=== PATIENT | female | born 1945 | race Caucasian/White ===

== ENCOUNTER 2020-09-01 15:38 | Inpatient (IN) | payer OTHER ==
[~2020-09-01] VITALS: Ht 162.6 cm; Wt 77.1 kg
[2020-09-01 15:40] VITALS: BP 104/70
[2020-09-01 16:11] LABS: BASOPHILS % (AUTO) 0.2 % (0.0-2.0); EOSINOPHILS # (AUTO) 0.2 K/uL (0-0.4); EOSINOPHILS % (AUTO) 1.8 % (0.0-4.0); HEMATOCRIT 36.1 % (36-48); HEMOGLOBIN 11.9 g/dL (12.0-16.0); LYMPHOCYTES # (AUTO) 2.7 K/uL (2.5-16.5); LYMPHOCYTES % (AUTO) 31.3 % (20.5-51.1); MEAN CORPUSCULAR HEMOGLOBIN 29 pg (27-31); MEAN CORPUSCULAR HGB CONC 33 g/dL (33-37); MEAN CORPUSCULAR VOLUME 89.3 fL (80-94); MONOCYTES # (AUTO) 0.8 K/uL (0.8-1.0); MONOCYTES % (AUTO) 9.4 % (1.7-9.3); NEUTROPHILS % (AUTO) 57.3 % (42.2-75.2); PLATELET COUNT (AUTO) 262 K/uL (140-450); RED BLOOD CELL COUNT(AUTO) 4.05 MIL/uL (4.20-5.40); RED CELL DISTRIBUTION WIDTH 14.9 % (11.6-13.7); WHITE BLOOD COUNT (AUTO) 8.7 K/uL (4.8-10.8)
[2020-09-01 16:29] LABS: ALBUMIN 2.7 g/dL (3.4-5.0); ANION GAP 9.9 (8-16); ASPARTATE AMINOTRANSFERASE 14 U/L (15-37); CARBON DIOXIDE 27.1 mmol/L (21-32); CHLORIDE 104 mmol/L (98-107); CREATININE 0.6 mg/dL (0.6-1.3); GLUCOSE 129 mg/dL (74-106); SODIUM SERUM 137 mmol/L (136-145); TOTAL BILIRUBIN 0.4 mg/dL (0.0-1.0); UREA NITROGEN, BLOOD 26 mg/dL (7-18)
[2020-09-01] MEDS ORDERED: ENAL5TAB48 PO (16:54)
[2020-09-01] MEDS ORDERED: MORPHINE SULFATE 4 MG/ML SYR IVP ONE (17:20)
[2020-09-02 07:27] LABS: BASOPHILS % (AUTO) 0.1 % (0.0-2.0); EOSINOPHILS # (AUTO) 0.2 K/uL (0-0.4); HEMATOCRIT 35.7 % (36-48); HEMOGLOBIN 11.9 g/dL (12.0-16.0); LYMPHOCYTES # (AUTO) 2.6 K/uL (2.5-16.5); LYMPHOCYTES % (AUTO) 28.4 % (20.5-51.1); MEAN CORPUSCULAR HEMOGLOBIN 30 pg (27-31); MEAN CORPUSCULAR HGB CONC 33 g/dL (33-37); MONOCYTES # (AUTO) 0.9 K/uL (0.8-1.0); MONOCYTES % (AUTO) 9.2 % (1.7-9.3); NEUTROPHILS # (AUTO) 5.6 K/uL (1.8-7.7); NEUTROPHILS % (AUTO) 60.3 % (42.2-75.2); PLATELET COUNT (AUTO) 251 K/uL (140-450); RED BLOOD CELL COUNT(AUTO) 4.01 MIL/uL (4.20-5.40); RED CELL DISTRIBUTION WIDTH 15.5 % (11.6-13.7); WHITE BLOOD COUNT (AUTO) 9.3 K/uL (4.8-10.8)
[2020-09-02 07:36] LABS: ALBUMIN 2.6 g/dL (3.4-5.0); AMYLASE 33 U/L (25-115); ANION GAP 9.4 (8-16); ASPARTATE AMINOTRANSFERASE 15 U/L (15-37); CARBON DIOXIDE 29.1 mmol/L (21-32); CHLORIDE 105 mmol/L (98-107); CHOL/HDL RATIO 3.1 (1-4.5); CREATININE 0.5 mg/dL (0.6-1.3); GLUCOSE 98 mg/dL (74-106); HDL CHOLESTEROL 45 mg/dL (40-60); LDL (CALC) 80 mg/dL (60-100); LIPASE 45 U/L (73-393); POTASSIUM 4.5 mmol/L (3.5-5.1); SODIUM SERUM 139 mmol/L (136-145); THYROID STIMULATING HORMONE 0.52 uIU/mL (0.34-3.74); TOTAL BILIRUBIN 0.6 mg/dL (0.0-1.0); TRIGLYCERIDES 65 mg/dL (30-150); UREA NITROGEN, BLOOD 26 mg/dL (7-18)
[2020-09-02 08:15] VITALS: BP 136/75
[2020-09-02] MEDS ORDERED: ZOLPIDEM 5 MG TAB PO PRN (09:25)
[2020-09-02] MEDS ORDERED: HYDROcodone/APAP 5/325 MG 1 TAB TAB PO PRN (09:25)
[2020-09-02] MEDS ORDERED: LORazepam 2 MG/ML VIAL IM/IVP PRN (09:25)
[2020-09-02] MEDS ORDERED: DOCUSATE SODIUM 100 MG GELCAP PO PRN (09:25)
[2020-09-02] MEDS: NACL 0.9% 1,000 ML IV SCH ×2 (09:25→23:43)
[2020-09-02] MEDS ORDERED: ONDANSETRON 4 MG/2 ML VIAL IVP PRN (09:25)
[2020-09-02] MEDS ORDERED: NITROGLYCERIN 0.4 MG TAB SL PRN (09:25)
[2020-09-02] MEDS ORDERED: ACETAMINOPHEN 325 MG TAB PO PRN (09:25)
[2020-09-02] MEDS ORDERED: MORPHINE SULFATE 2 MG/ML SYR IVP PRN (09:25)
[2020-09-02 10:04] LABS: PROTHROMBIN TIME 10.7 secs (10.8-13.4)
[2020-09-02 10:15] LABS: THYROID STIMULATING HORMONE 0.44 uIU/mL (0.34-3.74)
[2020-09-02 10:26] LABS: APPEARANCE,URINE CLOUDY (CLEAR); BILIRUBIN,URINE NEGATIVE (NEGATIVE); BLOOD, URINE 2+ (NEGATIVE); COLOR,URINE YELLOW (YELLOW); LEUKOCYTE ESTERASE ,URINE 2+ (NEGATIVE); NITRITE, URINE NEGATIVE (NEGATIVE); UGLUCOSE NEGATIVE (NEGATIVE)
[2020-09-02 11:04] LABS: CALCIUM OXALATE CRYSTALS,UR 0-10 /HPF (None Seen); YEAST,URINE Moderate /HPF (None Seen)
[2020-09-02 11:05] LABS: WBC,URINE 80-100 /HPF (0-5)
[2020-09-02] MEDS: ASPIRIN 81 MG TAB.CHEW PO SCH (11:10)
[2020-09-02 12:00] VITALS: BP 129/72
[2020-09-02] MEDS: LACTOBACILLUS RHAMNOSUS GG 1 EACH CAP PO SCH (13:10)
[2020-09-02] MEDS ORDERED: WOUND CARE PREPARATION 178 ML SPR TP PRN ×2 (14:35→15:15)
[2020-09-02 16:00] VITALS: BP 114/65
[2020-09-02 20:00] VITALS: BP 117/61
[2020-09-02] MEDS ORDERED: SIMVASTATIN 20 MG TAB PO SCH (21:00)
[2020-09-02] MEDS: ATORVASTATIN 20 MG TAB PO SCH (21:41)
[2020-09-03] VITALS: BP 145/73
[2020-09-03] MEDS: HYDRAGUARD CREAM TP SCH ×2 (00:21→13:00)
[2020-09-03] MEDS ORDERED: HYDRAGUARD CREAM TP SCH (01:00)
[2020-09-03 04:00] VITALS: BP 128/70
[2020-09-03] MEDS: NACL 0.9% 1,000 ML IV SCH ×2 (04:00→14:01)
[2020-09-03 07:12] LABS: MAGNESIUM 1.7 mg/dL (1.8-2.4); PHOSPHORUS 3.2 mg/dL (2.5-4.9)
[2020-09-03 07:15] LABS: BASOPHILS % (AUTO) 0.1 % (0.0-2.0); EOSINOPHILS # (AUTO) 0.2 K/uL (0-0.4); EOSINOPHILS % (AUTO) 2.2 % (0.0-4.0); HEMATOCRIT 35.6 % (36-48); HEMOGLOBIN 11.9 g/dL (12.0-16.0); LYMPHOCYTES # (AUTO) 2.4 K/uL (2.5-16.5); LYMPHOCYTES % (AUTO) 28.2 % (20.5-51.1); MEAN CORPUSCULAR HEMOGLOBIN 30 pg (27-31); MEAN CORPUSCULAR HGB CONC 33 g/dL (33-37); MONOCYTES # (AUTO) 0.8 K/uL (0.8-1.0); NEUTROPHILS # (AUTO) 5.1 K/uL (1.8-7.7); NEUTROPHILS % (AUTO) 60.5 % (42.2-75.2); PLATELET COUNT (AUTO) 249 K/uL (140-450); RED CELL DISTRIBUTION WIDTH 15.1 % (11.6-13.7); WHITE BLOOD COUNT (AUTO) 8.4 K/uL (4.8-10.8)
[2020-09-03 07:29] LABS: ANION GAP 8.4 (8-16); CARBON DIOXIDE 27.1 mmol/L (21-32); CHLORIDE 105 mmol/L (98-107); CREATININE 0.5 mg/dL (0.6-1.3); GLUCOSE 94 mg/dL (74-106); POTASSIUM 3.5 mmol/L (3.5-5.1); SODIUM SERUM 137 mmol/L (136-145); UREA NITROGEN, BLOOD 23 mg/dL (7-18)
[2020-09-03 08:00] VITALS: BP 151/74
[2020-09-03] MEDS: ASPIRIN 81 MG TAB.CHEW PO SCH (08:56)
[2020-09-03] MEDS: LACTOBACILLUS RHAMNOSUS GG 1 EACH CAP PO SCH (08:56)
[2020-09-03] MEDS: lisinopriL 10 MG TAB PO SCH (08:56)
[2020-09-03] MEDS ORDERED: MAGNESIUM OXIDE 400 MG TAB PO SCH (11:00)
[2020-09-03 12:00] VITALS: BP 116/75
[2020-09-03] MEDS ORDERED: MILD SOAP AND WATER TP SCH ×2 (13:00)
[2020-09-03] MEDS ORDERED: FLUCONAZOLE 100 MG TAB PO ONE (15:00)
[2020-09-03 16:00] VITALS: BP 133/71
[2020-09-03 20:00] VITALS: BP 135/70
[2020-09-03 20:41] LABS: HEMATOCRIT 35.3 % (36-48); HEMOGLOBIN 11.6 g/dL (12.0-16.0)
[2020-09-03] MEDS: ATORVASTATIN 20 MG TAB PO SCH (21:16)
[2020-09-04] MEDS: HYDRAGUARD CREAM TP SCH ×2 (01:00→13:52)
[2020-09-04 04:00] VITALS: BP 151/80
[2020-09-04] MEDS: NACL 0.9% 1,000 ML IV SCH (05:00)
[2020-09-04 08:00] VITALS: BP 151/87
[2020-09-04] MEDS ORDERED: MAG SULF 2000 MG/WATER PREMIX 50 ML IV ONE (08:30)
[2020-09-04] MEDS ORDERED: FLUC100T PO (08:58)
[2020-09-04] MEDS ORDERED: ASPI81CT95 PO (08:58)
[2020-09-04] MEDS: lisinopriL 10 MG TAB PO SCH (09:24)
[2020-09-04] MEDS: LACTOBACILLUS RHAMNOSUS GG 1 EACH CAP PO SCH (09:25)
[2020-09-04] MEDS: ASPIRIN 81 MG TAB.CHEW PO SCH (09:25)
[2020-09-04 16:00] VITALS: BP 145/74
== END 2020-09-04 18:41 | DRG 205 ==
LOC: MED 15:38 → MTU 09-02 01:03
PROVIDERS: ADMIT Internal Medicine; ATTEND Internal Medicine
DX: M94.0 Chondrocostal junction syndrome [Tietze] (principal); G93.41 Metabolic encephalopathy; E43 Unspecified severe protein-calorie malnutrition; N39.0 Urinary tract infection, site not specified; E66.9 Obesity, unspecified; E11.9 Type 2 diabetes mellitus without complications; I10 Essential (primary) hypertension; E78.5 Hyperlipidemia, unspecified; D64.9 Anemia, unspecified; E83.42 Hypomagnesemia; Z68.29 Body mass index [BMI] 29.0-29.9, adult; Z20.822 Contact with and (suspected) exposure to COVID-19
CPT/HCPCS: 36415; 70450; 71045; 80048; 80053; 81001; 82150; 83036; 83690; 83735; 83880; 84100; 84436; 84443; 84484; 85018; 85025; 85610; 85730; 87081; 87086; 93005; 99285; J0696; J2270; J3475; J7060

== ENCOUNTER 2020-09-06 00:10 | Observation (INO) | payer OTHER ==
[~2020-09-06] VITALS: Ht 160 cm; Wt 79.4 kg
[~2020-09-06 00:10] MED LIST: ASPI81CT95 PO; ENAL5TAB48 PO; FLUC100T PO
[2020-09-06 00:14] VITALS: BP 128/82
--- NOTE | 2020-09-06 00:14 | NUR ---
ANDRY GRUBBS TAKEN TO BED #12
--- NOTE | 2020-09-06 00:30 | NUR ---
[facility] NOONAN 75 [facility]EM[facility] PT. STATES THAT SHE HAS BEEN FEELING LEFT SIDED PRESSURE/WEAKNESS SINCE YESTERDAY. SHE DENIES PAIN AT THIS TIME. SKIN IS PINK/WARM/DRY; AAOX4 WITH EVEN AND STEADY GAIT; HR EVEN AND REGULAR; PT DENIES ANY FEVER, CP, SOB, OR COUGH AT THIS TIME; VSS; PATIENT POSITIONED FOR COMFORT; HOB ELEVATED; BEDRAILS UP X2; BED DOWN. ER MD MADE AWARE OF PT STATUS.
--- NOTE | 2020-09-06 00:43 | NUR ---
DR. NAGEL AT BEDSIDE.
[2020-09-06 01:08] LABS: BASOPHILS % (AUTO) 0.3 % (0.0-2.0); EOSINOPHILS # (AUTO) 0.2 K/uL (0-0.4); EOSINOPHILS % (AUTO) 2.9 % (0.0-4.0); HEMATOCRIT 36.5 % (36-48); HEMOGLOBIN 12.1 g/dL (12.0-16.0); LYMPHOCYTES # (AUTO) 2.7 K/uL (2.5-16.5); LYMPHOCYTES % (AUTO) 39.5 % (20.5-51.1); MEAN CORPUSCULAR HEMOGLOBIN 30 pg (27-31); MEAN CORPUSCULAR HGB CONC 33 g/dL (33-37); MEAN CORPUSCULAR VOLUME 88.9 fL (80-94); MONOCYTES # (AUTO) 0.7 K/uL (0.8-1.0); MONOCYTES % (AUTO) 9.7 % (1.7-9.3); NEUTROPHILS # (AUTO) 3.3 K/uL (1.8-7.7); NEUTROPHILS % (AUTO) 47.6 % (42.2-75.2); PLATELET COUNT (AUTO) 263 K/uL (140-450); RED CELL DISTRIBUTION WIDTH 15.4 % (11.6-13.7); WHITE BLOOD COUNT (AUTO) 6.8 K/uL (4.8-10.8)
[2020-09-06 01:32] LABS: PROTHROMBIN TIME 10.8 secs (10.8-13.4)
[2020-09-06 01:46] LABS: ANION GAP 14.1 (8-16); CHLORIDE 105 mmol/L (98-107); GLUCOSE 102 mg/dL (74-106); POTASSIUM 4.1 mmol/L (3.5-5.1); SODIUM SERUM 141 mmol/L (136-145); UREA NITROGEN, BLOOD 16 mg/dL (7-18)
[2020-09-06 01:47] LABS: ALBUMIN 2.6 g/dL (3.4-5.0); ASPARTATE AMINOTRANSFERASE 15 U/L (15-37); CREATININE 0.5 mg/dL (0.6-1.3); TOTAL BILIRUBIN 0.4 mg/dL (0.0-1.0)
--- NOTE | 2020-09-06 01:47 | NUR ---
PT TRANSPORTED TO CT VIA [facility]
--- NOTE | 2020-09-06 02:10 | NUR ---
PT RETURNED FROM CT VIA [facility]
--- NOTE | 2020-09-06 02:41 | NUR ---
PT. RESTING COMFORTABLY WITH EYES CLOSED AND VOICES NO COMPLAINTS.
[2020-09-06] MEDS ORDERED: POTASSIUM CHLORIDE 10 MEQ TABER PO PRN (03:55)
[2020-09-06] MEDS ORDERED: ONDANSETRON 4 MG/2 ML VIAL IVP PRN (03:55)
[2020-09-06] MEDS ORDERED: ACETAMINOPHEN 325 MG TAB PO PRN (03:55)
[2020-09-06] MEDS ORDERED: MORPHINE SULFATE 4 MG/ML SYR IVP PRN (03:55)
[2020-09-06] MEDS ORDERED: MAGNESIUM OXIDE 400 MG TAB PO PRN (03:55)
[2020-09-06] MEDS ORDERED: KCL 20 MEQ/WATER INJ PREMIX 200 ML IV PRN (03:55)
[2020-09-06] MEDS ORDERED: MAG SULF 2000 MG/WATER PREMIX 50 ML IV PRN (03:55)
[2020-09-06] MEDS ORDERED: ASCO500T95 PO (04:37)
--- NOTE | 2020-09-06 04:45 | NUR ---
CALLED REPORT TO ALISIA SOLANO (TELEMETRY) FOR TRANSFER OF CARE.
--- NOTE | 2020-09-06 04:55 | NUR ---
PT. TRANSPORTED VIA GURNEY TO TELEMTRY UNIT, ACCOMPANIED BY RN (MYSELF) AND EMT, DARRELL.
[2020-09-06 05:15] VITALS: BP 109/76
--- NOTE | 2020-09-06 05:15 | NUR ---
PT ARRIVED TO UNIT VIA GURNEY. PT IS AWAKE AND ALERT, A&OX4. ON RA WITH BREATHING UNLABORED. NO RESPIRATORY DISTRESS NOTED. BOWEL SOUNDS ARE PRESENT IN ALL QUADRANTS. CALVO CATH IN PLACE DRAINING CLEAR, YELLOW URINE. PT HAS GENERALIZED WEAKNESS AND STATES SHE USES WALKER AT HOME. SKIN IS WARM, DRY, AND INTACT. PT IS STABLE.
--- NOTE | 2020-09-06 05:30 | NUR ---
CAGE MAKER MACHINE USED TO OBTAIN HISTORY. PT IS A&OX4. DID NOT REMEMBER THE ANSWER TO VERY FEW QUESTIONS. PT APPEARS TO BE ALERT. TEAROOM HOST/HOSTESS NUMBER [id number].
--- NOTE | 2020-09-06 06:39 | NUR ---
SKIN TEAR NOTED ON RIGHT BUTTOCK AND REDNESS TO THE BUTTOCK REGION. AREA WAS CLEANSED WITH NS AND PATTED DRY. PICTURE WAS TAKEN. CHARGE NURSE, MELONIE, AT BEDSIDE. PT DENIES PAIN AT SITE.
--- NOTE | 2020-09-06 07:02 | NUR ---
SENT A MESSAGE TO DR. MASON REGARDING PT'S CODE STATUS. INFORMED HIM THAT ORDER WAS PLACED FOR FULL CODE STATUS BUT POLST STATES PT IS DNR WITH COMFORT MEASURES. WILL WAIT FOR REPLY BACK.
--- NOTE | 2020-09-06 07:25 | NUR ---
ENDORSED PT TO DAY SHIFT NURSE FOR CONTINUITY OF CARE. PT IS STABLE AT THIS TIME. PLAN OF CARE DISCUSSED.
--- NOTE | 2020-09-06 07:36 | NUR ---
DR. MASON RESPONDED TO TEXT MESSAGE TO CHANGE CODE STATUS TO DNR. CODE STATUS CHANGED FROM FULL CODE TO DNR.
--- NOTE | 2020-09-06 07:37 | NUR ---
RECEIVED REPORT FROM INDUSTRIAL SALES ENGINEER NURSE. PATIENT LYING DOWN IN BED SLEEPING, AROUSABLE BY VOICE. ON ROOM AIR. IV SITE INTACT, PATENT, AND INFUSING IVF PER MD ORDERS. REVIEWED PLAN OF CARE WITH PATIENT. REINFORCEMENT NEEDED. SAFETY MEASURES IN PLACE, CALL LIGHT WITHIN REACH. WILL CONTINUE TO MONITOR.
[2020-09-06 08:00] VITALS: BP 115/69
--- NOTE | 2020-09-06 08:32 | NUR ---
SCHEDULED MEDICATIONS DUE GIVEN. WILL CONTINUE TO MONITOR.
--- NOTE | 2020-09-06 08:55 | NUR ---
PATIENT HAS BEEN SCREENED AND CATEGORIZED LOW NUTRITION RISK. PATIENT WILL BE SEEN WITHIN 7 DAYS OF ADMISSION. 09/12/20 FNS CONSULT RECEIVED FOR WOUNDS/PRESSURE INJURIES NOT APPROPRIATE. CHRISTIANA PHIPPS RD
[2020-09-06] MEDS ORDERED: ASPIRIN 81 MG TAB.CHEW PO SCH (09:00)
[2020-09-06] MEDS ORDERED: ENOXAPARIN 40 MG/0.4 ML SYR SUBQ SCH (09:00)
--- NOTE | 2020-09-06 10:53 | NUR ---
PATIENT LYING DOWN IN BED WATCHING TV. NO DISTRESS NOTED. CONDITION UNCHANGED. WILL CONTINUE TO MONITOR.
--- NOTE | 2020-09-06 10:58 | NUR ---
PAKO FISH PEDDLER: RECEIVED ORDER FOR MRI OF THE HEAD. FAXED TO CATHI AT [facility] [phone]. RECEIVED A PHONE CALL FROM CATHI HE ASKED THAT WE SEND THE ORDER TO [facility] AND [facility]. HE RECOMMENDED FOR THE PATIENT TO BE TRANSFERRED OUT INSTEAD OF RETURNING AFTER THE MRI. CATHI WILL FOLLOW UP WITH BOTH HOSPITALS AND CONTACT US BACK. Addendum: 09/06/20 at 1551 by Kelly Petersen CM Cathi is working on bed for pt at [facility] ([phone]); [facility] has called [facility] to confirm bed number, [facility] left a message. [facility] has placed [facility] ambulance on will call ([phone]); auth: [id number].
[2020-09-06 12:00] VITALS: BP 102/53
[2020-09-06 12:18] LABS: BILIRUBIN,URINE NEGATIVE (NEGATIVE); BLOOD, URINE 1+ (NEGATIVE); COLOR,URINE YELLOW (YELLOW); LEUKOCYTE ESTERASE ,URINE 1+ (NEGATIVE); NITRITE, URINE NEGATIVE (NEGATIVE); UGLUCOSE NEGATIVE (NEGATIVE)
--- NOTE | 2020-09-06 12:30 | NUR ---
MRI HEAD QUESTIONNAIRE FILLED OUT WITH PATIENT. PATIENT VERBALIZED COMPLETE UNDERSTANDING. WILL CONTINUE TO MONITOR.
[2020-09-06 12:35] LABS: APPEARANCE,URINE CLEAR (CLEAR); RBC,URINE 0-5 /HPF (0-5); WBC,URINE 0-5 /HPF (0-5)
--- NOTE | 2020-09-06 15:00 | NUR ---
ASSISTED PATIENT IN [facility]. WILL CONTINUE TO MONITOR.
[2020-09-06 16:00] VITALS: BP 112/66
--- NOTE | 2020-09-06 17:49 | NUR ---
DISCHARGE INSTRUCTIONS PROVIDED TO PATIENT IN PREFERRED LANGUAGE OF [place] WITH [employer] REP #[id number]. NOTIFIED PATIENT OF TRANSFER TO [facility] LATER TODAY FOR MRI HEAD AND CONTINUATION OF CARE PER INSURANCE REQUEST. ANSWERED ALL OF PATIENT'S QUESTIONS REGARDING TRANSFER. CALLED PATIENT'S DAUGHTER, CHEKO JEFFERY AND NOTIFIED HER OF PATIENT'S PLAN OF BEING TRANSFERRED TO [facility] TODAY. ANSWERED ALL OF HER QUESTIONS. DAUGHTER VERBALIZED COMPLETED UNDERSTANDING.
--- NOTE | 2020-09-06 19:39 | NUR ---
GAVE REPORT TO CONTAINER CRANE OPERATOR NURSE FOR CONTINUITY OF CARE. PATIENT IN STABLE CONDITION.
--- NOTE | 2020-09-06 19:40 | NUR ---
RECEIVED REPORT FROM SUJATA ATKINSON. PT AOX2 ON ROOM AIR. NO S/S RESPIRATORY DISTRESS. IV SITE RAC PATENT INTACT, S.L. HAS R BUTTOCK SKIN TEAR. SAFETY MEASURES IN PLACE. CALL LIGHT WITHIN REACH. WILL CONTINUE TO MONITOR Addendum: 09/07/20 at 0022 by Magdy Marvin RN CALVO CATH IN PLACE. DRAINING YELLOW URINE
--- NOTE | 2020-09-06 19:55 | NUR ---
PRN MORPHINE GIVEN FOR 10/10 GENERALIZED PAIN. EDUCATION PROVIDED. NO DISTRESS NOTED. SAFETY MEASURES IN PLACE. CALL LIGHT WITHIN REACH. WILL CONTINUE TO MONITOR
[2020-09-06 20:00] VITALS: BP 121/73
--- NOTE | 2020-09-06 20:41 | NUR ---
RECEIVED CALL FROM [facility], SPOKE WITH MACHO CRUMP. PT WILL BE GOING TO TELE STATION 3 ROOM 350A. RECEIVED PHONE NUMBER [phone] TO GIVE REPORT TO.
--- NOTE | 2020-09-06 21:00 | NUR ---
REPORT GIVEN TO ALISIA RABAGO FROM [facility].
--- NOTE | 2020-09-06 22:40 | NUR ---
RECEIVED CALL FROM DAUGHTER CHEKO. UPDATED ON PATIENT'S STATUS
[2020-09-07] VITALS: BP 153/90
--- NOTE | 2020-09-07 00:06 | NUR ---
PATIENT ASLEEP IN BED. EASILY AROUSABLE. RESPIRATIONS EVEN UNLABORED. NO DISTRESS NOTED. DENIES DISCOMFORT. DENIES PAIN. CALL LIGHT WITHIN REACH. WILL CONTINUE TO MONITOR
--- NOTE | 2020-09-07 00:50 | NUR ---
PATIENT LEFT WITH TRANSPORT TEAM, TRANSFER TO [facility]. PT IN STABLE CONDITION
[2020-09-07] MEDS ORDERED: Z-GUARD PASTE TP SCH (01:00)
== END 2020-09-07 00:50 | disposition short-term general hospital (02) ==
LOC: MED 00:10 → MTU 04:01
PROVIDERS: ADMIT Hospitalist; ATTEND Hospitalist
DX: R53.1 Weakness (principal); Z20.822 Contact with and (suspected) exposure to COVID-19; R20.0 Anesthesia of skin; I11.0 Hypertensive heart disease with heart failure; I50.30 Unspecified diastolic (congestive) heart failure; E66.01 Morbid (severe) obesity due to excess calories; F03.90 Unspecified dementia, unspecified severity, without behavioral disturbance, psychotic disturbance, mood disturbance, and anxiety; E11.9 Type 2 diabetes mellitus without complications; R51.9 Headache, unspecified; Z79.899 Other long term (current) drug therapy; Z68.31 Body mass index [BMI] 31.0-31.9, adult
CPT/HCPCS: 36415; 70450; 71045; 80053; 81001; 84484; 85025; 85610; 85730; 87081; 87086; 87426; 93880; 96372; 96374; 97163; 99285; G0378; J1650; J2270

== ENCOUNTER 2023-08-24 14:38 | Inpatient (IN) | payer OTHER ==
[~2023-08-24] VITALS: Ht 165.1 cm; Wt 108.9 kg
[~2023-08-24 14:38] MED LIST changes: +ACET-10509 PO; +ASCO500T95 PO; +CHOL5000 PO; +CRAN450T5 PO; +DEXT118S47 PO; +DOCU-299 PO; +ENAL-197 PO; +HYDR-5080 PO; +IBUP-2213 PO; +MEMA5TAB15 PO; +MULT-2246 PO; +NITR100C7 PO; +PHEN26CR2 RC
[2023-08-24 14:47] VITALS: BP_SYST 116; BP_SYST 154; BP_DIAS 61; BP_DIAS 86; PULSE 79; RESP 20; TEMP 97.7; O2SAT 96
[2023-08-24 15:36] LABS: BASOPHILS % (AUTO) 0.1 % (0.0-2.0); EOSINOPHILS # (AUTO) 0.1 K/uL (0-0.4); EOSINOPHILS % (AUTO) 1.8 % (0.0-4.0); HEMATOCRIT 38.7 % (36-48); HEMOGLOBIN 13.2 g/dL (12.0-16.0); LYMPHOCYTES # (AUTO) 1.6 K/uL (2.5-16.5); LYMPHOCYTES % (AUTO) 21.3 % (20.5-51.1); MEAN CORPUSCULAR HEMOGLOBIN 31 pg (27-31); MEAN CORPUSCULAR HGB CONC 34 g/dL (33-37); MEAN CORPUSCULAR VOLUME 89.8 fL (80-94); MONOCYTES # (AUTO) 0.6 K/uL (0.8-1.0); MONOCYTES % (AUTO) 8.4 % (1.7-9.3); NEUTROPHILS # (AUTO) 5.2 K/uL (1.8-7.7); NEUTROPHILS % (AUTO) 68.4 % (42.2-75.2); PLATELET COUNT (AUTO) 223 K/uL (140-450); RED BLOOD CELL COUNT(AUTO) 4.31 MIL/uL (4.20-5.40); RED CELL DISTRIBUTION WIDTH 14.3 % (11.6-13.7); WHITE BLOOD COUNT (AUTO) 7.6 K/uL (4.8-10.8)
[2023-08-24 15:57] LABS: ANION GAP 11.4 (8-16); CALCIUM 8.4 mg/dL (8.5-10.1); CARBON DIOXIDE 27.8 mmol/L (21-32); CHLORIDE 105 mmol/L (98-107); CREATININE 0.6 mg/dL (0.6-1.3); GLUCOSE 113 mg/dL (74-106); POTASSIUM 4.2 mmol/L (3.5-5.1); SODIUM SERUM 140 mmol/L (136-145); UREA NITROGEN, BLOOD 23 mg/dL (7-18)
[2023-08-24 16:03] LABS: ALANINE AMINOTRANSFERASE 16 U/L (12-78); ALBUMIN 2.9 g/dL (3.4-5.0); ALKALINE PHOSPHATASE 98 U/L (50-136); ASPARTATE AMINOTRANSFERASE 10 U/L (15-37); BILIRUBIN,DIRECT 0.1 mg/dL (0.0-0.3); TOTAL BILIRUBIN 0.4 mg/dL (0.0-1.0); TOTAL PROTEIN, SERUM 6.6 g/dL (6.4-8.2)
[2023-08-24] MEDS ORDERED: ACETAMINOPHEN 325 MG TAB PO ONE (16:30)
[2023-08-24] MEDS: ACETAMINOPHEN 325 MG TAB PO ONE (17:16)
[2023-08-24] MEDS: ASPIRIN 325 MG TAB PO ONE (17:18)
[2023-08-24] MEDS ORDERED: ACETAMINOPHEN 325 MG TAB PO PRN (17:30)
[2023-08-24] MEDS ORDERED: ONDANSETRON 4 MG/2 ML VIAL IVP PRN (17:30)
[2023-08-24] MEDS ORDERED: HYDROcodone/APAP 5/325 MG 1 TAB TAB PO PRN (17:30)
[2023-08-24] MEDS ORDERED: ATOR20TA40 PO (17:48)
[2023-08-24] MEDS ORDERED: HYDR-1098 PO (17:48)
[2023-08-24 20:50] VITALS: PULSE 68
[2023-08-24 22:00] VITALS: PULSE 63; RESP 18
[2023-08-24] MEDS: METOPROLOL 25 MG TAB PO SCH (22:27)
[2023-08-25] VITALS (8 sets, daily range): BP systolic 115–175; BP diastolic 57–78; PULSE 55–83; RESP 18–61; TEMP 97–98.4; O2SAT 97–100
[2023-08-25 06:24] LABS: BASOPHILS % (AUTO) 0.3 % (0.0-2.0); EOSINOPHILS # (AUTO) 0.2 K/uL (0-0.4); EOSINOPHILS % (AUTO) 3.3 % (0.0-4.0); HEMATOCRIT 39.1 % (36-48); HEMOGLOBIN 13.1 g/dL (12.0-16.0); LYMPHOCYTES # (AUTO) 2.1 K/uL (2.5-16.5); LYMPHOCYTES % (AUTO) 31.6 % (20.5-51.1); MEAN CORPUSCULAR HEMOGLOBIN 30 pg (27-31); MEAN CORPUSCULAR HGB CONC 34 g/dL (33-37); MEAN CORPUSCULAR VOLUME 90.3 fL (80-94); MONOCYTES # (AUTO) 0.6 K/uL (0.8-1.0); MONOCYTES % (AUTO) 8.5 % (1.7-9.3); NEUTROPHILS # (AUTO) 3.8 K/uL (1.8-7.7); NEUTROPHILS % (AUTO) 56.3 % (42.2-75.2); PLATELET COUNT (AUTO) 226 K/uL (140-450); RED BLOOD CELL COUNT(AUTO) 4.33 MIL/uL (4.20-5.40); RED CELL DISTRIBUTION WIDTH 14.5 % (11.6-13.7); WHITE BLOOD COUNT (AUTO) 6.8 K/uL (4.8-10.8)
[2023-08-25 06:46] LABS: ALANINE AMINOTRANSFERASE 16 U/L (12-78); ALBUMIN 2.8 g/dL (3.4-5.0); ALKALINE PHOSPHATASE 93 U/L (50-136); ANION GAP 10.2 (8-16); ASPARTATE AMINOTRANSFERASE 17 U/L (15-37); CALCIUM 8.2 mg/dL (8.5-10.1); CARBON DIOXIDE 27.5 mmol/L (21-32); CHLORIDE 106 mmol/L (98-107); CREATININE 0.7 mg/dL (0.6-1.3); GLUCOSE 78 mg/dL (74-106); POTASSIUM 3.7 mmol/L (3.5-5.1); SODIUM SERUM 140 mmol/L (136-145); TOTAL BILIRUBIN 0.7 mg/dL (0.0-1.0); TOTAL PROTEIN, SERUM 6.2 g/dL (6.4-8.2); UREA NITROGEN, BLOOD 21 mg/dL (7-18)
[2023-08-25] MEDS: ENOXAPARIN 40 MG/0.4 ML SYR SUBQ SCH (09:06)
[2023-08-25] MEDS: ASPIRIN 81 MG TAB.CHEW PO SCH (09:07)
[2023-08-25] MEDS: MEDS-TO-BEDS MC SCH (21:00)
[2023-08-26] VITALS: BP 109/58; PULSE 55; PULSE 66; RESP 18; TEMP 98.1; O2SAT 94
[2023-08-26 04:00] VITALS: BP 122/71; PULSE 61; RESP 18; TEMP 97.1; O2SAT 96
[2023-08-26 08:00] VITALS: BP 137/66; PULSE 57; RESP 18; TEMP 97.1; O2SAT 99
[2023-08-26 08:01] VITALS: PULSE 63; PULSE 65; RESP 18; O2SAT 97
[2023-08-26 12:00] VITALS: BP 112/54; PULSE 59; RESP 18; TEMP 97.9; O2SAT 99
[2023-08-26 16:00] VITALS: PULSE 62
[2023-08-27] MEDS ORDERED: ENAL-197 PO (07:27)
[2023-08-27] MEDS ORDERED: HYDR-1098 PO (07:27)
[2023-08-27] MEDS ORDERED: ACET-10509 PO (07:27)
[2023-08-27] MEDS ORDERED: ATOR20TA PO (07:27)
[2023-08-27] MEDS ORDERED: CHOL500040 PO (07:27)
[2023-08-27] MEDS ORDERED: ASPI-1822 PO (07:27)
[2023-08-27] MEDS ORDERED: ACET-9527 PO (07:27)
== END 2023-08-26 17:45 | DRG 392 ==
LOC: MED 14:38 → OBSVTOIN 17:30 → MTU 17:30
PROVIDERS: ADMIT Hospitalist; ATTEND Hospitalist
DX: K21.9 Gastro-esophageal reflux disease without esophagitis (principal); I50.30 Unspecified diastolic (congestive) heart failure; J81.1 Chronic pulmonary edema; R51.9 Headache, unspecified; E66.01 Morbid (severe) obesity due to excess calories; I11.0 Hypertensive heart disease with heart failure; Z96.611 Presence of right artificial shoulder joint; Z79.84 Long term (current) use of oral hypoglycemic drugs; Z79.82 Long term (current) use of aspirin; Z79.899 Other long term (current) drug therapy; Z86.73 Personal history of transient ischemic attack (TIA), and cerebral infarction without residual deficits; Z68.39 Body mass index [BMI] 39.0-39.9, adult
CPT/HCPCS: 36415; 70450; 71045; 80048; 80053; 80076; 83735; 83880; 84484; 85025; 87081; 93005; 99285; J1650

== ENCOUNTER 2023-08-27 05:25 | Observation (INO) | payer OTHER ==
[~2023-08-27] VITALS: Ht 165.1 cm; Wt 111.2 kg
[~2023-08-27 05:25] MED LIST changes: +ATOR20TA40 PO; -DEXT118S47 PO; -FLUC100T PO; +HYDR-1098 PO; -IBUP-2213 PO; -NITR100C7 PO
[2023-08-27 05:30] VITALS: BP 126/66; PULSE 62; RESP 14; TEMP 97.9; O2SAT 97
[2023-08-27 06:04] LABS: BASOPHILS % (AUTO) 0.2 % (0.0-2.0); EOSINOPHILS # (AUTO) 0.2 K/uL (0-0.4); EOSINOPHILS % (AUTO) 2.7 % (0.0-4.0); HEMOGLOBIN 13.3 g/dL (12.0-16.0); LYMPHOCYTES # (AUTO) 1.7 K/uL (2.5-16.5); LYMPHOCYTES % (AUTO) 23.6 % (20.5-51.1); MEAN CORPUSCULAR HEMOGLOBIN 30 pg (27-31); MEAN CORPUSCULAR HGB CONC 33 g/dL (33-37); MEAN CORPUSCULAR VOLUME 91.2 fL (80-94); MONOCYTES # (AUTO) 0.7 K/uL (0.8-1.0); MONOCYTES % (AUTO) 9.8 % (1.7-9.3); NEUTROPHILS # (AUTO) 4.6 K/uL (1.8-7.7); NEUTROPHILS % (AUTO) 63.7 % (42.2-75.2); PLATELET COUNT (AUTO) 219 K/uL (140-450); RED BLOOD CELL COUNT(AUTO) 4.39 MIL/uL (4.20-5.40); RED CELL DISTRIBUTION WIDTH 14.6 % (11.6-13.7); WHITE BLOOD COUNT (AUTO) 7.3 K/uL (4.8-10.8)
[2023-08-27 06:13] LABS: ANION GAP 10.8 (8-16); CALCIUM 8.5 mg/dL (8.5-10.1); CARBON DIOXIDE 28.2 mmol/L (21-32); CHLORIDE 104 mmol/L (98-107); CREATININE 0.8 mg/dL (0.6-1.3); GLUCOSE 104 mg/dL (74-106); SODIUM SERUM 139 mmol/L (136-145); UREA NITROGEN, BLOOD 22 mg/dL (7-18)
[2023-08-27] MEDS ORDERED: ACET-9527 PO (07:27)
[2023-08-27] MEDS ORDERED: ENAL-197 PO (07:27)
[2023-08-27] MEDS ORDERED: ASPI-1822 PO (07:27)
[2023-08-27] MEDS ORDERED: CHOL500040 PO (07:27)
[2023-08-27] MEDS ORDERED: ATOR20TA PO (07:27)
[2023-08-27] MEDS ORDERED: HYDR-1098 PO (07:27)
[2023-08-27] MEDS ORDERED: ACET-10509 PO (07:27)
[2023-08-27] MEDS: ASPIRIN 81 MG TAB.CHEW PO ONE (08:25)
[2023-08-27] MEDS ORDERED: ONDANSETRON 4 MG/2 ML VIAL IVP PRN (08:40)
[2023-08-27] MEDS ORDERED: ACETAMINOPHEN 325 MG TAB PO PRN (08:40)
[2023-08-27 10:18] VITALS: O2SAT 98
[2023-08-27 12:09] VITALS: PULSE 78; RESP 18; O2SAT 99
[2023-08-27 16:00] VITALS: BP 109/72; PULSE 78; PULSE 84; RESP 18; TEMP 97.8
[2023-08-27 20:00] VITALS: BP 107/69; PULSE 74; PULSE 76; RESP 18; TEMP 97.3
[2023-08-27] MEDS: PANTOPRAZOLE 40 MG INJ VIAL IVP SCH (20:09)
[2023-08-27] MEDS: MEDS-TO-BEDS MC SCH (20:10)
[2023-08-28] VITALS (7 sets, daily range): BP systolic 123–156; BP diastolic 64–82; PULSE 59–79; RESP 18–20; TEMP 97.2–98
[2023-08-28 06:29] LABS: BASOPHILS % (AUTO) 0.2 % (0.0-2.0); EOSINOPHILS # (AUTO) 0.2 K/uL (0-0.4); EOSINOPHILS % (AUTO) 2.5 % (0.0-4.0); HEMATOCRIT 40.5 % (36-48); HEMOGLOBIN 13.8 g/dL (12.0-16.0); LYMPHOCYTES # (AUTO) 1.8 K/uL (2.5-16.5); LYMPHOCYTES % (AUTO) 26.2 % (20.5-51.1); MEAN CORPUSCULAR HEMOGLOBIN 31 pg (27-31); MEAN CORPUSCULAR HGB CONC 34 g/dL (33-37); MEAN CORPUSCULAR VOLUME 90.5 fL (80-94); MONOCYTES # (AUTO) 0.6 K/uL (0.8-1.0); MONOCYTES % (AUTO) 9.3 % (1.7-9.3); NEUTROPHILS # (AUTO) 4.2 K/uL (1.8-7.7); NEUTROPHILS % (AUTO) 61.8 % (42.2-75.2); PLATELET COUNT (AUTO) 220 K/uL (140-450); RED BLOOD CELL COUNT(AUTO) 4.48 MIL/uL (4.20-5.40); RED CELL DISTRIBUTION WIDTH 14.4 % (11.6-13.7); WHITE BLOOD COUNT (AUTO) 6.9 K/uL (4.8-10.8)
[2023-08-28 06:54] LABS: CALCIUM 8.4 mg/dL (8.5-10.1); CHLORIDE 105 mmol/L (98-107); CREATININE 0.6 mg/dL (0.6-1.3); GLUCOSE 86 mg/dL (74-106); SODIUM SERUM 140 mmol/L (136-145); UREA NITROGEN, BLOOD 24 mg/dL (7-18)
[2023-08-28] MEDS ORDERED: PANT40EC PO (16:00)
[2023-08-29] VITALS (7 sets, daily range): BP systolic 134–154; BP diastolic 59–65; PULSE 63–87; RESP 18–19; TEMP 96.7–98
[2023-08-29] MEDS: MORPHINE SULFATE 2 MG/ML SYR IVP PRN (01:06)
== END 2023-08-29 14:50 ==
LOC: MED 05:25 → MERGE 08:38 → MTU 08:38
PROVIDERS: ADMIT Hospitalist; ATTEND Hospitalist
DX: K29.70 Gastritis, unspecified, without bleeding (principal); E66.01 Morbid (severe) obesity due to excess calories; I10 Essential (primary) hypertension; E78.5 Hyperlipidemia, unspecified; R06.02 Shortness of breath; Z68.41 Body mass index [BMI] 40.0-44.9, adult; Z79.82 Long term (current) use of aspirin
CPT/HCPCS: 36415; 71045; 80048; 83735; 84484; 85025; 87081; 93005; 93307; 96374; 96375; 96376; 99291; C9113; G0378; J2270

== ENCOUNTER 2023-12-09 19:09 | Emergency (ER) | payer OTHER ==
[~2023-12-09] VITALS: Ht 170.2 cm; Wt 104.3 kg
[~2023-12-09 19:09] MED LIST changes: -ACET-10509 PO; +ACET-9527 PO; +ACET500T99 PO; +ASPI-1822 PO; +ATOR20TA PO; +CHOL500040 PO; +PANT40EC PO
[2023-12-09 19:17] VITALS: BP 148/70; PULSE 70; RESP 18; TEMP 98; O2SAT 96
--- NOTE | 2023-12-09 19:18 | NUR ---
BIBA BLS TO 12
--- NOTE | 2023-12-09 19:19 | NUR ---
TO BED 12 VIA [facility]
--- NOTE | 2023-12-09 19:30 | NUR ---
SEEN AND EXAMINED BY DANIEL WITH ORDERS AND CARRIED OUT.
--- NOTE | 2023-12-09 20:00 | NUR ---
URINE SPICEMEN SENT TO LAB
[2023-12-09 20:33] LABS: BILIRUBIN,URINE NEGATIVE (NEGATIVE); BLOOD, URINE TRACE-L (NEGATIVE); COLOR,URINE YELLOW (YELLOW); LEUKOCYTE ESTERASE ,URINE NEGATIVE (NEGATIVE); NITRITE, URINE NEGATIVE (NEGATIVE); PROTEIN,URINE NEGATIVE (NEGATIVE); UGLUCOSE NEGATIVE (NEGATIVE); UROBILINOGEN,URINE 0.2 EU/dL (0.2 - 1)
[2023-12-09] MEDS ORDERED: KETOROLAC 30 MG/ML VIAL IM ONE (20:45)
[2023-12-09 20:52] LABS: APPEARANCE,URINE SLIGHTLY HAZY (CLEAR)
[2023-12-09 20:56] LABS: BACTERIA,URINE 1+ /HPF (None Seen); MUCUS,URINE 1+ /LPF (None Seen); SQUAMOUS EPITHELIAL CELL,UR 4-10 (MOD) /LPF (0-3 (FEW)); WBC,URINE 0-5 /HPF (0-5)
[2023-12-09] MEDS: KETOROLAC 30 MG/ML VIAL IVP ONE (21:05)
--- NOTE | 2023-12-09 21:05 | NUR ---
MEDICATED PER ERMD'S ORDER, TOLERATED WELL.
[2023-12-09 21:19] LABS: BASOPHILS % (AUTO) 0.2 % (0.0-2.0); EOSINOPHILS % (AUTO) 0.5 % (0.0-4.0); HEMATOCRIT 40.2 % (36-48); HEMOGLOBIN 13.3 g/dL (12.0-16.0); LYMPHOCYTES # (AUTO) 1.5 K/uL (2.5-16.5); LYMPHOCYTES % (AUTO) 15.6 % (20.5-51.1); MEAN CORPUSCULAR HEMOGLOBIN 30 pg (27-31); MEAN CORPUSCULAR HGB CONC 33 g/dL (33-37); MEAN CORPUSCULAR VOLUME 90.6 fL (80-94); MONOCYTES # (AUTO) 0.7 K/uL (0.8-1.0); MONOCYTES % (AUTO) 7.6 % (1.7-9.3); NEUTROPHILS # (AUTO) 7.4 K/uL (1.8-7.7); NEUTROPHILS % (AUTO) 76.1 % (42.2-75.2); PLATELET COUNT (AUTO) 201 K/uL (140-450); RED BLOOD CELL COUNT(AUTO) 4.43 MIL/uL (4.20-5.40); RED CELL DISTRIBUTION WIDTH 14.6 % (11.6-13.7); WHITE BLOOD COUNT (AUTO) 9.7 K/uL (4.8-10.8)
[2023-12-09 21:37] LABS: ANION GAP 9.3 (8-16); CARBON DIOXIDE 28.9 mmol/L (21-32); CHLORIDE 107 mmol/L (98-107); CREATININE 0.6 mg/dL (0.6-1.3); GLUCOSE 100 mg/dL (74-106); POTASSIUM 4.2 mmol/L (3.5-5.1); SODIUM SERUM 141 mmol/L (136-145); UREA NITROGEN, BLOOD 26 mg/dL (7-18)
[2023-12-09 21:41] LABS: ALBUMIN 3.2 g/dL (3.4-5.0); BILIRUBIN,DIRECT 0.2 mg/dL (0.0-0.3); TOTAL BILIRUBIN 1.1 mg/dL (0.0-1.0); TOTAL PROTEIN, SERUM 7.4 g/dL (6.4-8.2)
--- NOTE | 2023-12-09 22:50 | NUR ---
FAMILY MEMBER AT BEDSIDE
--- NOTE | 2023-12-09 23:45 | NUR ---
MEDICATED , PER ERMDS ORDER, TOLERATED WELL, WITH MODERATE AMOUNT OF BM, ERMD NOTED.
[2023-12-09] MEDS: SODIUM PHOSPHATE 118 ML ENEM RC ONE (23:48)
[2023-12-10] MEDS ORDERED: MIRABULK PO (01:24)
[2023-12-10] MEDS ORDERED: MAGN296S70 PO (01:24)
--- NOTE | 2023-12-10 01:50 | NUR ---
ALL RESULTS BACK AND NOTED BY ERMD AND FOR D/C,
--- NOTE | 2023-12-10 02:05 | NUR ---
A/W FOR TRANSPORTATION, AND SCHEDULED AT 0630HOURS BY [facility].
[2023-12-10] MEDS: ACETAMINOPHEN EXTRA STRENGTH 500 MG TAB PO ONE (03:35)
--- NOTE | 2023-12-10 04:00 | NUR ---
Patient appears to be resting . Vital Signs within normal limits. Respirations even and unlabored.
--- NOTE | 2023-12-10 06:30 | NUR ---
STILL A/W FOR THE TRANSPORTATION, PATIENT STILL ASLEEP
--- NOTE | 2023-12-10 07:40 | NUR ---
REPORT GIVEN TO NUBIA CRUMP
--- NOTE | 2023-12-10 07:50 | NUR ---
PT AWAITING TRANSPORTATION. ALL BELONGINGS GATHERED AND DISCHARGE INSTRUCTIONS GIVEN.
[2023-12-10 08:22] VITALS: BP 129/80; PULSE 80; RESP 16; TEMP 98; O2SAT 96
--- NOTE | 2023-12-10 08:22 | NUR ---
TRANSPORTATION HERE FOR TRANSPORT BACK TO FACILITY.
--- NOTE | 2023-12-10 08:24 | NUR ---
Patient discharged with v/s stable. Written and verbal after care instructions given and explained. Patient alert, oriented and verbalized understanding of instructions. Ambulance Transport with to shelter. All questions addressed prior to discharge. ID band removed. Patient advised to follow up with PMD. Rx of MIRALAX AND MAGNESIUM CITRATE given. Patient educated on indication of medication including possible reaction and side effects. Opportunity to ask questions provided and answered.
== END 2023-12-10 08:24 ==
LOC: MED 19:09
DX: K59.00 Constipation, unspecified (principal); R11.2 Nausea with vomiting, unspecified; R51.9 Headache, unspecified; K21.9 Gastro-esophageal reflux disease without esophagitis; I10 Essential (primary) hypertension; E78.5 Hyperlipidemia, unspecified; F41.9 Anxiety disorder, unspecified; F03.90 Unspecified dementia, unspecified severity, without behavioral disturbance, psychotic disturbance, mood disturbance, and anxiety; Z86.73 Personal history of transient ischemic attack (TIA), and cerebral infarction without residual deficits; Z79.899 Other long term (current) drug therapy; Z79.82 Long term (current) use of aspirin
CPT/HCPCS: 36415; 74176; 80048; 80076; 81001; 83690; 85025; 96374; 99285; J1885

== ENCOUNTER 2023-12-22 01:30 | Observation (INO) | payer OTHER ==
[~2023-12-22] VITALS: Ht 167.6 cm; Wt 109.8 kg
[2023-12-22] VITALS (7 sets, daily range): BP systolic 118–176; BP diastolic 67–78; PULSE 56–98; RESP 18–20; TEMP 96.1–97.6; O2SAT 97–98
[~2023-12-22 01:30] MED LIST changes: +MAGN296S70 PO; +MIRABULK PO
[2023-12-22 01:55] LABS: BASOPHILS % (AUTO) 0.3 % (0.0-2.0); EOSINOPHILS # (AUTO) 0.2 K/uL (0-0.4); EOSINOPHILS % (AUTO) 2.7 % (0.0-4.0); HEMATOCRIT 36.7 % (36-48); HEMOGLOBIN 12.3 g/dL (12.0-16.0); LYMPHOCYTES # (AUTO) 2.3 K/uL (2.5-16.5); LYMPHOCYTES % (AUTO) 34.7 % (20.5-51.1); MEAN CORPUSCULAR HEMOGLOBIN 30 pg (27-31); MEAN CORPUSCULAR HGB CONC 34 g/dL (33-37); MEAN CORPUSCULAR VOLUME 89.8 fL (80-94); MONOCYTES # (AUTO) 0.6 K/uL (0.8-1.0); NEUTROPHILS # (AUTO) 3.6 K/uL (1.8-7.7); NEUTROPHILS % (AUTO) 53.3 % (42.2-75.2); PLATELET COUNT (AUTO) 189 K/uL (140-450); RED BLOOD CELL COUNT(AUTO) 4.08 MIL/uL (4.20-5.40); RED CELL DISTRIBUTION WIDTH 14.5 % (11.6-13.7); WHITE BLOOD COUNT (AUTO) 6.8 K/uL (4.8-10.8)
[2023-12-22 02:10] LABS: ALANINE AMINOTRANSFERASE 23 U/L (12-78); ALBUMIN 2.8 g/dL (3.4-5.0); ALKALINE PHOSPHATASE 96 U/L (50-136); ANION GAP 7.7 (8-16); ASPARTATE AMINOTRANSFERASE 17 U/L (15-37); CARBON DIOXIDE 29.4 mmol/L (21-32); CHLORIDE 106 mmol/L (98-107); CREATININE 0.7 mg/dL (0.6-1.3); GLUCOSE 117 mg/dL (74-106); POTASSIUM 4.1 mmol/L (3.5-5.1); SODIUM SERUM 139 mmol/L (136-145); TOTAL BILIRUBIN 0.5 mg/dL (0.0-1.0); TOTAL PROTEIN, SERUM 6.4 g/dL (6.4-8.2); UREA NITROGEN, BLOOD 26 mg/dL (7-18)
[2023-12-22] MEDS ORDERED: BUS5 PO (02:54)
[2023-12-22] MEDS: ACETAMINOPHEN EXTRA STRENGTH 500 MG TAB PO ONE (04:29)
[2023-12-22] MEDS ORDERED: traMADol 50 MG TAB ONE (04:47)
[2023-12-22] MEDS: traMADol 50 MG TAB PO ONE (04:52)
[2023-12-22] MEDS ORDERED: POTASSIUM CHLORIDE 10 MEQ TABER PO PRN (07:15)
[2023-12-22] MEDS ORDERED: MORPHINE SULFATE 4 MG/ML SYR IVP PRN (07:15)
[2023-12-22] MEDS ORDERED: MAGNESIUM OXIDE 400 MG TAB PO PRN (07:15)
[2023-12-22] MEDS ORDERED: KCL 20 MEQ IN 100 mL PREMIX 200 ML IV PRN (07:15)
[2023-12-22] MEDS ORDERED: ONDANSETRON 4 MG/2 ML VIAL IVP PRN (07:15)
[2023-12-22] MEDS: ACETAMINOPHEN 325 MG TAB PO PRN (09:42)
[2023-12-22] MEDS: MAG SULF 2000 MG/WATER PREMIX 50 ML IV PRN (10:47)
[2023-12-22] MEDS: HYDROcodone/APAP 5/325 MG 1 TAB TAB PO PRN (21:29)
[2023-12-23] VITALS (7 sets, daily range): BP systolic 105–159; BP diastolic 45–77; PULSE 62–78; RESP 18–19; TEMP 96.2–96.9; O2SAT 97–98
[2023-12-23 05:17] LABS: BASOPHILS % (AUTO) 0.2 % (0.0-2.0); EOSINOPHILS # (AUTO) 0.2 K/uL (0-0.4); EOSINOPHILS % (AUTO) 2.8 % (0.0-4.0); HEMATOCRIT 38.2 % (36-48); HEMOGLOBIN 12.8 g/dL (12.0-16.0); LYMPHOCYTES # (AUTO) 1.8 K/uL (2.5-16.5); LYMPHOCYTES % (AUTO) 30.3 % (20.5-51.1); MEAN CORPUSCULAR HEMOGLOBIN 30 pg (27-31); MEAN CORPUSCULAR HGB CONC 33 g/dL (33-37); MEAN CORPUSCULAR VOLUME 90.2 fL (80-94); MONOCYTES # (AUTO) 0.5 K/uL (0.8-1.0); NEUTROPHILS # (AUTO) 3.4 K/uL (1.8-7.7); NEUTROPHILS % (AUTO) 57.7 % (42.2-75.2); PLATELET COUNT (AUTO) 198 K/uL (140-450); RED BLOOD CELL COUNT(AUTO) 4.23 MIL/uL (4.20-5.40); RED CELL DISTRIBUTION WIDTH 14.6 % (11.6-13.7); WHITE BLOOD COUNT (AUTO) 5.9 K/uL (4.8-10.8)
[2023-12-23 06:45] LABS: ALANINE AMINOTRANSFERASE 21 U/L (12-78); ALBUMIN 2.9 g/dL (3.4-5.0); ALKALINE PHOSPHATASE 96 U/L (50-136); ANION GAP 10.2 (8-16); ASPARTATE AMINOTRANSFERASE 15 U/L (15-37); CALCIUM 8.4 mg/dL (8.5-10.1); CARBON DIOXIDE 29.2 mmol/L (21-32); CHLORIDE 105 mmol/L (98-107); CREATININE 0.6 mg/dL (0.6-1.3); GLUCOSE 93 mg/dL (74-106); MAGNESIUM 2.3 mg/dL (1.8-2.4); POTASSIUM 4.4 mmol/L (3.5-5.1); SODIUM SERUM 140 mmol/L (136-145); TOTAL BILIRUBIN 0.7 mg/dL (0.0-1.0); TOTAL PROTEIN, SERUM 6.7 g/dL (6.4-8.2); UREA NITROGEN, BLOOD 19 mg/dL (7-18)
== END 2023-12-23 16:05 ==
LOC: MED 01:30 → INTOOBSV 07:20 → MTU 07:20
PROVIDERS: ADMIT Hospitalist; ATTEND Hospitalist
DX: R20.0 Anesthesia of skin (principal); E66.01 Morbid (severe) obesity due to excess calories; F03.B4 Unspecified dementia, moderate, with anxiety; I10 Essential (primary) hypertension; E78.5 Hyperlipidemia, unspecified; F32.A Depression, unspecified; E55.9 Vitamin D deficiency, unspecified; M79.671 Pain in right foot; G89.29 Other chronic pain; K21.9 Gastro-esophageal reflux disease without esophagitis; Z68.39 Body mass index [BMI] 39.0-39.9, adult; Z79.899 Other long term (current) drug therapy
CPT/HCPCS: 36415; 70450; 71045; 72125; 73630; 80053; 83735; 83880; 84484; 85025; 85379; 87081; 93005; 93926; 93971; 96365; 96366; 96372; 97110; 97163; 97530; 99285; G0378; J1644; J3475; Q0092